=== PATIENT | female | born 1955 | race African-American/Black ===

== ENCOUNTER 2017-03-14 12:44 | Inpatient (IN) | payer BC, MEDICARE, OTHER ==
[2017-03-11 14:56] LABS: ASPARTATE AMINO TRANSFERASE 20 U/L (15-37); BLOOD UREA NITROGEN 17 mg/dL (7-18)
[~2017-03-14] VITALS: Ht 157.5 cm; Wt 80.0 kg
[~2017-03-14 12:44] MED LIST: CHOL10002 PO; CYAN1TAB29 PO; HYDR25TA6 PO; IRON1TAB54 PO; LANS30CA16 PO; MULT-658 PO
[2017-03-14] MEDS ORDERED: MIDAZOLAM 1 MG/ML, 2ML ONE (12:47)
[2017-03-14] MEDS ORDERED: FENTANYL PF 250 MCG/5ML ONE (12:47)
[2017-03-14] MEDS ORDERED: BUPIVACAINE/PF 0.5% ONE (12:51)
[2017-03-14] MEDS ORDERED: LACTATED RINGERS 1,000 ML IV SCH (13:04)
[2017-03-14] MEDS ORDERED: SCOPOLAMINE PATCH, 1.5MG PATCH.TD72 TD ONE (14:03)
[2017-03-14] MEDS ORDERED: ONDANSETRON 2MG/ML, 2ML ONE (14:09)
[2017-03-14] MEDS ORDERED: KETOROLAC 30 MG/1 ML ONE (14:09)
[2017-03-14] MEDS ORDERED: LABETALOL 5MG/ML 40ML VIAL ONE (14:09)
[2017-03-14] MEDS ORDERED: METOCLOPRAMIDE 5 MG/ML, 2ML ONE (14:09)
[2017-03-14] MEDS ORDERED: PROPOFOL 10 MG/ML, 20ML ONE (14:09)
[2017-03-14] MEDS ORDERED: SUCCINYLCHOLINE 20 MG/ML, 10ML ONE (14:09)
[2017-03-14] MEDS ORDERED: DEXAMETHASONE 4 MG/ML, 1ML ONE (14:09)
[2017-03-14] MEDS ORDERED: LABETALOL 5MG/ML, 20ML IV PRN (15:30)
[2017-03-14] MEDS ORDERED: OXYcodone 5 MG/5 ML ORAL.SOL UDC PO PRN (15:30)
[2017-03-14] MEDS ORDERED: hydrALAzine 20 MG/ML, 1ML IV PRN ×2 (15:30→18:30)
[2017-03-14] MEDS ORDERED: ACETAMINOPHEN 325 MG TABLET PO PRN ×2 (15:30→18:30)
[2017-03-14] MEDS ORDERED: MIDAZOLAM 1 MG/ML, 2ML IV PRN (15:30)
[2017-03-14] MEDS ORDERED: PROMETHAZINE 25 MG/ML, 1ML IV PRN (15:30)
[2017-03-14] MEDS ORDERED: ONDANSETRON 2MG/ML, 2ML IVPush PRN (15:30)
[2017-03-14] MEDS ORDERED: MEPERIDINE/PF 25MG/0.5ML IVPush PRN (15:30)
[2017-03-14] MEDS ORDERED: ALBUTEROL/IPRATROPIUM 2.5MG/0.5MG, 3 ML NPPB PRN (15:30)
[2017-03-14] MEDS ORDERED: FENTANYL PF 100 MCG/2ML IV PRN (15:30)
[2017-03-14 16:26] LABS: IOPTH BASELINE 95 pg/mL; SAMPLE 5 %DROP IOPTH 94 %
[2017-03-14] MEDS ORDERED: OXYcodone 5 MG/5 ML ORAL.SOL UDC ONE (16:49)
[2017-03-14] MEDS ORDERED: HYDROmorphone 1 MG/ML, 1ML ONE (17:20)
[2017-03-14] MEDS: HYDROmorphone 1 MG/ML, 1ML IV PRN ×2 (17:23→17:34)
[2017-03-14] MEDS ORDERED: ACETAMINOPHEN 650 MG SUPP PR PRN (18:30)
[2017-03-14] MEDS ORDERED: KETOROLAC 30 MG/1 ML IV PRN (18:30)
[2017-03-14] MEDS ORDERED: D5%-0.45NACL+KCL 20MEQ 1,000 ML IV SCH (18:30)
[2017-03-14 18:47] VITALS: BP 122/70
[2017-03-14] MEDS: D5%-0.45NACL+KCL 20MEQ 1,000 ML IV SCH (19:08)
[2017-03-14] MEDS: CALCIUM/VITAMIN D3 250-125 TABLET PO SCH (19:57)
[2017-03-14] MEDS: CALCITRIOL 0.5 MCG CAPSULE PO SCH (19:57)
[2017-03-14] MEDS: ENOXAPARIN 30 MG/0.3 ML SQ SCH (19:58)
[2017-03-14 20:18] VITALS: BP 119/65
[2017-03-14] MEDS: HYDROcodone/APAP 5/325 TABLET PO PRN (23:10)
[2017-03-14] MEDS: SODIUM CHLORIDE FLUSH 10ML SYR IVF SCH (23:11)
[2017-03-15 00:55] VITALS: BP 156/99
[2017-03-15] MEDS: HYDROcodone/APAP 5/325 TABLET PO PRN ×3 (03:48→10:40)
[2017-03-15 04:47] VITALS: BP 99/49
[2017-03-15] MEDS: D5%-0.45NACL+KCL 20MEQ 1,000 ML IV SCH (05:30)
[2017-03-15] MEDS ORDERED: PANTOPROZOLE 40MG TABLET PO SCH ×2 (07:30)
[2017-03-15 08:32] VITALS: BP 116/75
[2017-03-15] MEDS: CALCIUM/VITAMIN D3 250-125 TABLET PO SCH (08:39)
[2017-03-15] MEDS: CALCITRIOL 0.5 MCG CAPSULE PO SCH (08:39)
[2017-03-15] MEDS: SODIUM CHLORIDE FLUSH 10ML SYR IVF SCH (08:39)
[2017-03-15] MEDS: ENOXAPARIN 30 MG/0.3 ML SQ SCH (08:42)
[2017-03-15] MEDS ORDERED: HYDROCHLOROTHIAZIDE 25 MG TABLET PO SCH ×2 (09:00)
[2017-03-15] MEDS ORDERED: CHOLECALCIFEROL 1,000 UNIT TABLET PO SCH ×2 (09:00)
[2017-03-15] MEDS ORDERED: VITAMIN B12 FOLIC ACID HOMEMEDPO SCH (09:00)
[2017-03-15] MEDS ORDERED: MULTIVITAMIN 1 TABLET PO SCH ×2 (09:00)
[2017-03-15] MEDS ORDERED: [UNRECOGNIZED DRUG - OTHER] HOMEMEDPO SCH (09:00)
[2017-03-15] MEDS ORDERED: HYDR-3240 PO (11:44)
[2017-03-15] MEDS ORDERED: CALC0.5C PO (11:44)
[2017-03-15] MEDS ORDERED: CALC-118 PO (11:44)
[2017-03-15] MEDS ORDERED: CYANOCOBALAMIN 1,000 MCG TABLET PO SCH (18:30)
== END 2017-03-15 12:00 | disposition home or self-care (01) | DRG 627 ==
LOC: OUT 12:44 → 4NOR 17:47 → OUT 17:59 → 4NOR 17:59 → DCLOUNGE 03-15 11:18
PROVIDERS: ADMIT Surgery; ATTEND Surgery
PROC: 0GBM0ZZ Excision of Left Superior Parathyroid Gland, Open Approach (ICD-10-PCS; 2017-03-14)
PROC: 0GBN0ZZ Excision of Right Inferior Parathyroid Gland, Open Approach (ICD-10-PCS; 2017-03-14)
PROC: 07BM0ZZ Excision of Thymus, Open Approach (ICD-10-PCS; 2017-03-14)
PROC: 0GBP0ZZ Excision of Left Inferior Parathyroid Gland, Open Approach (ICD-10-PCS; principal; 2017-03-14 14:30)
DX: E21.0 Primary hyperparathyroidism (principal); Z88.0 Allergy status to penicillin; Z88.1 Allergy status to other antibiotic agents; M19.90 Unspecified osteoarthritis, unspecified site; E78.00 Pure hypercholesterolemia, unspecified; I10 Essential (primary) hypertension; Z88.5 Allergy status to narcotic agent; Z91.040 Latex allergy status; Z88.8 Allergy status to other drugs, medicaments and biological substances; Z91.018 Allergy to other foods
CPT/HCPCS: 36415; 80053; 82310; 83970; 85025; 88304; 88305; 88331; 93005; C1729; J1100; J1170; J1650; J1885; J2250; J2405; J2704; J3010; J3490; C1760; J0330; J2765; J3480; J7120

== ENCOUNTER → 2019-08-13 | Outpatient (CLI) | payer MEDICARE ==
[~2019-08-13] MED LIST changes: +CALC-118 PO; +CALC0.5C9 PO; +HYDR-3240 PO; -LANS30CA16 PO; +LANS30CA60 PO
== END | disposition home or self-care (01) ==
LOC: CFH 13:28
PROVIDERS: ATTEND Family Medicine
DX: Z12.31 Encounter for screening mammogram for malignant neoplasm of breast (principal)
CPT/HCPCS: 77067

== ENCOUNTER → 2020-10-07 | Outpatient (CLI) | payer MEDICARE ==
[~2020-10-07] MED LIST changes: +HYDR-1067 PO; -HYDR-3240 PO
== END | disposition home or self-care (01) ==
LOC: CFH 10:14
PROVIDERS: ATTEND Family Medicine
DX: Z12.31 Encounter for screening mammogram for malignant neoplasm of breast (principal)
CPT/HCPCS: 77063; 77067